=== PATIENT | female | born 1985 | race Caucasian/White ===

== ENCOUNTER 2021-01-15 10:07 | Emergency (ER) | payer MEDICAID ==
[2021-01-15] MEDS ORDERED: Lactated Ringers 1,000 ML IV ONE (10:48)
[2021-01-15] MEDS ORDERED: Ketorolac 15 MG/ML SDV IVPUSH ONE (10:50)
--- NOTE | 2021-01-15 11:40 | EDM.PDOC ---
ED HPI GENERAL MEDICAL PROBLEM - General Chief Complaint: Genitourinary Problem Stated Complaint: KIDNEY Time Seen by Provider: 01/15/21 10:29 - History of Present Illness INITIAL COMMENTS - FREE TEXT/NARRATIVE: CHIEF COMPLAINT(S): "My kidneys are hurting." HISTORY OF PRESENT ILLNESS: This is a 35-year-old woman in without any significant past medical history who comes to the emergency department with a chief complaint of "my kidneys are hurting. The patient states that starting approximately 5 hours prior to arrival she started to experience left-sided/left flank pain radiating to her groin which she describes as sharp rated 10 out of 10. She states that this pain is constant. She denies any vaginal bleeding, vaginal discharge, dysuria but states that she does have some increased urgency but she is not peeing a lot. She states that she has some nausea and feels bloated. She has not yet tried any pain medication. She has never had pain like this before. She states that she tried to drink water and cranberry juice without did not help. There are no exacerbating factors. No relieving factors. REVIEW OF SYSTEMS: Constitutional: Denies fever, chills. Eyes: Denies eye pain Ears, Nose, Mouth, & Throat: Denies earache Cardiovascular: Denies chest pain Respiratory: Denies shortness of breath Gastrointestinal: Denies abdominal pain, nausea, vomiting, diarrhea, hematochezia. Genitourinary: Positive for left flank pain, increased urgency, decreased urinary output. Denies dysuria, vaginal bleeding, vaginal discharge Skin:Denies a rash MSK: Denies joint pain Neurological: Denies blurred vision Psychiatric: Denies depression PAST MEDICAL HISTORY: As per history of present illness and as reviewed below otherwise noncontributory. SURGICAL HISTORY: As per history of present illness and as reviewed below otherwise noncontributory. LMP: December 12, 2020 SOCIAL HISTORY: As per history of present illness and as reviewed below otherwise noncontributory. FAMILY HISTORY: As per history of present illness and as reviewed below otherwise noncontributory. EXAMINATION OF ORGAN SYSTEMS/BODY AREAS: Constitutional: Blood pressure is 120/73, heart rate 64, respiratory rate 16 with an oxygen saturation 98% on room air. Temperature 36.1 General: Young woman who does not appear to be in acute distress. Psychiatric: Appropriate mood and affect. Eyes: No scleral icterus or conjunctival erythema ENMT: Moist mucous membranes. No pharyngeal erythema Cardiovascular: Regular, rate, and rhythm. No gallops, murmurs, or rubs. Bilateral upper extremity pulses symmetric and intact. No peripheral edema. No JVD. Respiratory: Lungs clear to auscultation bilaterally. No wheezes, rales, or rhonchi. Gastrointestinal: Soft, non-tender, non-distended. Normoactive bowel sounds Genitourinary: Positive for suprapubic tenderness and left flank tenderness. Musculoskeletal: Normal range of motion. Skin: No lesions or abrasions. Neurological: Alert, GCS 15 MEDICAL DECISION MAKING AND COURSE IN THE ED WITH INTERPRETATION/REVIEW OF DIAGNOSTIC STUDIES: This is a 35-year-old man without any significant past medical history who comes to the emergency department with acute onset left flank pain with radiation to the groin associated with increased urinary urgency and decreased urinary output. At this time differential includes pyelonephritis, cystitis, nephrolithiasis. Will obtain a CT abdomen pelvis without contrast for further evaluation. Will obtain CBC, BMP, hCG and urinalysis. We will provide the patient with Toradol for pain relief and 1 L of lactated Ringer's bolus. Laboratory: CBC is unremarkable. BMP unremarkable. Urinalysis is negative. The radiological images were viewed by myself along with reading the report from the radiologist. CT abdomen pelvis without contrast reveals no acute findings in the abdomen or pelvis. There is a few tiny nonobstructing right renal calyceal stones. No hydronephrosis or calculi. There is fullness of the uterine cervix and vaginal canal with multiple endovaginal gas locules of uncertain to significance. There is also a small hyperdensity in the left ovary. After imaging I did discuss results with the patient. At this time the patient stated that she had continued pain. Therefore I provided her with morphine for pain relief. I encouraged her that I would like to obtain a transvaginal ultrasound. She was amenable to this plan. The radiological images were viewed by myself along with reading the report from the radiologist. Transvaginal ultrasound does not reveal any acute pelvic pathology. There is mild enlargement of the uterus without any signs of mass. Otherwise no abnormality of the ovaries bilaterally. I did discuss the results with the patient. At this time the patient was feeling much better. Encouraged her to follow-up with her primary care physician for reevaluation. She was given strict return precautions and had no further questions. DISPOSITION: The patient was discharged home in stable condition. The patient will follow up with with her primary care physician in 3 to 5 days CONDITION: Fair PROCEDURES: None FINAL IMPRESSION(S)/DIAGNOSES: 1. Acute abdominal pain 2. Acute flank pain Tramaine Barragan M.D. Groin Pain Score (Numeric/FACES): 9 - Related Data Allergies Allergy/AdvReac Type Severity Reaction Status Date / Time No Known Allergies Allergy Verified 01/17/21 10:50 Home Meds: Home Meds Doxycycline [Vibramycin] 100 mg PO BID 14 Days #28 cap 01/17/21 [Rx] metroNIDAZOLE [Flagyl] 500 mg PO Q12H 14 Days #28 tab 01/17/21 [Rx] Past Medical History - Past Health History Medical/Surgical History: Denies Medical/Surgical History - Infectious Disease History Infectious Disease History: Reports: None Social & Family History - Tobacco Use Tobacco Use Status *Q: Never Tobacco User - Caffeine Use Caffeine Use: Reports: None - Recreational Drug Use Recreational Drug Use: No ED ROS GENERAL - Review of Systems Review Of Systems: See Below ED EXAM, GENERAL - Physical Exam Exam: See Below Course - Vital Signs Last Recorded V/S: Last Vital Signs Temp 36.1 C 01/15/21 10:28 Pulse 67 01/15/21 16:44 Resp 16 01/15/21 16:44 BP 119/78 01/15/21 16:44 Pulse Ox 97 01/15/21 16:44 - Orders/Labs/Meds Labs: Laboratory Tests 01/15/21 01/15/21 01/15/21 Range/Units 10:32 10:32 11:17 WBC 7.41 (4.0-11.0) K/uL RBC 4.29 L (4.30-5.90) M/uL Hgb 13.2 (12.0-16.0) g/dL Hct 39.7 (36.0-46.0) % MCV 92.5 (80.0-98.0) fL MCH 30.8 (27.0-32.0) pg MCHC 33.2 (31.0-37.0) g/dL RDW Std Deviation 44.5 (28.0-62.0) fl RDW Coeff of Adolfo 13 (11.0-15.0) % Plt Count 272 (150-400) K/uL MPV 10.10 (7.40-12.00) fL Neut % (Auto) 76.4 (48.0-80.0) % Lymph % (Auto) 15.7 L (16.0-40.0) % Swain % (Auto) 6.7 (0.0-15.0) % Eos % (Auto) 0.9 (0.0-7.0) % Baso % (Auto) 0.3 (0.0-1.5) % Neut # (Auto) 5.7 (1.4-5.7) K/uL Lymph # (Auto) 1.2 (0.6-2.4) K/uL Swain # (Auto) 0.5 (0.0-0.8) K/uL Eos # (Auto) 0.1 (0.0-0.7) K/uL Baso # (Auto) 0.0 (0.0-0.1) K/uL Nucleated RBC % 0.0 /100WBC Nucleated RBCs # 0 K/uL Sodium (136-145) mmol/L Potassium (3.5-5.1) mmol/L Chloride (98-107) mmol/L Carbon Dioxide (21.0-32.0) mmol/L BUN (7.0-18.0) mg/dL Creatinine (0.6-1.0) mg/dL Est Cr Clr Drug Dosing mL/min Estimated GFR (MDRD) ml/min Glucose (74-106) mg/dL Calcium (8.5-10.1) mg/dL Urine Color STRAW Urine Appearance CLEAR Urine pH 7.5 (5.0-8.0) Ur Specific [place] 1.010 (1.001-1.035) Urine Protein NEGATIVE (NEGATIVE) mg/dL Urine Glucose (UA) NEGATIVE (NEGATIVE) mg/dL Urine Ketones NEGATIVE (NEGATIVE) mg/dL Urine Occult Blood NEGATIVE (NEGATIVE) Urine Nitrite NEGATIVE (NEGATIVE) Urine Bilirubin NEGATIVE (NEGATIVE) Urine Urobilinogen 0.2 (<2.0) EU/dL Ur Leukocyte Esterase NEGATIVE (NEGATIVE) Urine HCG, Qual NEGATIVE (NEGATIVE) 01/15/21 Range/Units 11:17 WBC (4.0-11.0) K/uL RBC (4.30-5.90) M/uL Hgb (12.0-16.0) g/dL Hct (36.0-46.0) % MCV (80.0-98.0) fL MCH (27.0-32.0) pg MCHC (31.0-37.0) g/dL RDW Std Deviation (28.0-62.0) fl RDW Coeff of Adolfo (11.0-15.0) % Plt Count (150-400) K/uL MPV (7.40-12.00) fL Neut % (Auto) (48.0-80.0) % Lymph % (Auto) (16.0-40.0) % Swain % (Auto) (0.0-15.0) % Eos % (Auto) (0.0-7.0) % Baso % (Auto) (0.0-1.5) % Neut # (Auto) (1.4-5.7) K/uL Lymph # (Auto) (0.6-2.4) K/uL Swain # (Auto) (0.0-0.8) K/uL Eos # (Auto) (0.0-0.7) K/uL Baso # (Auto) (0.0-0.1) K/uL Nucleated RBC % /100WBC Nucleated RBCs # K/uL Sodium 139 (136-145) mmol/L Potassium 4.2 (3.5-5.1) mmol/L Chloride 103 (98-107) mmol/L Carbon Dioxide 29.0 (21.0-32.0) mmol/L BUN 5 L (7.0-18.0) mg/dL Creatinine 0.5 L (0.6-1.0) mg/dL Est Cr Clr Drug Dosing 138.19 mL/min Estimated GFR (MDRD) > 60.0 ml/min Glucose 89 (74-106) mg/dL Calcium 8.8 (8.5-10.1) mg/dL Urine Color Urine Appearance Urine pH (5.0-8.0) Ur Specific [place] (1.001-1.035) Urine Protein (NEGATIVE) mg/dL Urine Glucose (UA) (NEGATIVE) mg/dL Urine Ketones (NEGATIVE) mg/dL Urine Occult Blood (NEGATIVE) Urine Nitrite (NEGATIVE) Urine Bilirubin (NEGATIVE) Urine Urobilinogen (<2.0) EU/dL Ur Leukocyte Esterase (NEGATIVE) Urine HCG, Qual (NEGATIVE) Meds: Medications Discontinued Medications Generic Name Dose Route Start Last Admin Trade Name Juanita PRN Reason Stop Dose Admin Lactated Ringer's 1,000 mls @ 999 mls/hr 01/15/21 10:48 01/15/21 11:16 Ringers, Lactated IV 01/15/21 11:48 999 mls/hr .BOLUS ONE Administration Ketorolac Tromethamine 15 mg 01/15/21 10:50 01/15/21 11:16 Ketorolac 15 Mg/Ml Sdv IVPUSH 01/15/21 10:51 15 mg ONETIME ONE Administration Morphine Sulfate 4 mg 01/15/21 14:13 01/15/21 15:33 Morphine 4 Mg/Ml Syringe IVPUSH 01/15/21 14:14 4 mg ONETIME ONE Administration Departure - Departure Time of Disposition: 16:31 Disposition: Home, Self-Care 01 Condition: Fair Clinical Impression: Abdominal pain - Discharge Information *PRESCRIPTION DRUG MONITORING PROGRAM REVIEWED*: No *COPY OF PRESCRIPTION DRUG MONITORING REPORT IN PATIENT LEX: No Instructions: Abdominal Pain, Adult, [id number], Flank Pain, Adult, Eas y-to-Read Referrals: PCP,None [Primary Care Provider] - Forms: ED Department Discharge Additional Instructions: You were evaluated today on an emergent basis. At this time I would like you to take Tylenol and Motrin alternating for pain relief. Your work-up today was negative other than suggestion that you might be beginning your menstrual cycle. If you have any worsening pain, fever, continued pain when you AR like you to return to the emergency department. Otherwise please follow-up with your primary care physician in 3 to 5 days. Please use: Tylenol 500-1000mg every 6 hours (DO NOT TAKE MORE THAN 4000mg in 1 day) Ibuprofen 400mg every 6 hours (Take with food as it can cause ulcers, GI upset) Example schedule: 8:00 AM (Tylenol 500-1000mg) 11:00 AM (Ibuprofen 400mg) 2:00 PM (Tylenol 500-1000mg) 5:00 PM (Ibuprofen 400mg) [facility] [address] [place] [id number] [facility] [address] [place] [id number] The patient is informed of any results of their evaluation and diagnostic workup and all questions are answered. They are given discharge instructions and return precautions. The patient is stable for discharge. The patient states they understand and agree with the plan and that they will return if their symptoms get worse or if they have any new concerns. The following information is given to patients seen in the emergency department who are being discharged to home. This information is to outline your options for follow-up care. We provide all patients seen in our emergency department with a follow-up referral. The need for follow-up, as well as the timing and circumstances, are variable depending upon the specifics of your emergency department visit. If you don't have a primary care physician on staff, we will provide you with a referral. We always advise you to contact your personal physician following an emergency department visit to inform them of the circumstance of the visit and for follow-up with them and/or the need for any referrals to a consulting specialist. The emergency department will also refer you to a specialist when appropriate. This referral assures that you have the opportunity for follow-up care with a specialist. All of these measure are taken in an effort to provide you with optimal care, which includes your follow-up. Under all circumstances we always encourage you to contact your private physician who remains a resource for coordinating your care. When calling for follow-up care, please make the office aware that this follow-up is from your recent emergency room visit. If for any reason you are refused follow-up, please contact the [facility] Emergency Department at and asked to speak to the emergency department charge nurse. Sepsis Event Note (ED) - Evaluation Sepsis Screening Result: No Definite Risk
[2021-01-15 12:15] LABS: BLOOD UREA NITROGEN,BUN 5 mg/dL (7.0-18.0); CHLORIDE,CL 103 mmol/L (98-107); GLUCOSE RANDOM 89 mg/dL (74-106); POTASSIUM,K 4.2 mmol/L (3.5-5.1); SODIUM,NA 139 mmol/L (136-145)
--- NOTE | 2021-01-15 13:51 | CT ---
INDICATION: Left flank pain, evaluate for nephrolithiasis. TECHNIQUE: CT of the abdomen and pelvis without intravenous contrast. Coronal and sagittal reconstructions. COMPARISON: None. FINDINGS: The unenhanced liver, gallbladder, spleen, pancreas, and adrenal glands are normal in appearance. No biliary dilation. Two small low-attenuation lesions in the right kidney most likely represent cysts. Few tiny 1 mm nonobstructing right renal caliceal stones. Probable tiny parenchymal calcification in the lower pole right kidney. No left intrarenal calculi. No hydronephrosis or ureteral dilation. No obstructing urinary calculi identified. The unenhanced bladder is normal in appearance. Small calcific densities adjacent to the uterine cornua may be related to tubal ligation. There is fullness of the uterine cervix and vagina with multiple endovaginal gas locules of uncertain significance. Small hyperdensity in the left ovary (series 201, image 134). No abnormality in the right adnexa. No bowel dilation. Negative appendix. Trace free fluid in the pelvic cul-de-sac may be physiologic. No intraperitoneal free air. No lymphadenopathy. The bones are unremarkable. 3 mm noncalcified pulmonary nodule in the lateral left lower lobe (series 202, image 10). 2 mm noncalcified pulmonary nodule along the left major fissure (image 11). 2 mm noncalcified pulmonary nodule in the anterior lateral right lower lobe (image 3). These are most likely benign given patient`s age. The lung bases are otherwise clear. IMPRESSION: 1. No acute findings in the abdomen or pelvis on this noncontrast exam. 2. Few tiny nonobstructing right renal caliceal stones. No left intrarenal calculi. No ureteral calculi or hydronephrosis. 3. Fullness of the uterine cervix and vaginal canal with multiple endovaginal gas locules of uncertain significance. There is also a small hyperdensity in the left ovary. This could be further evaluated with pelvic ultrasound. Please note that all CT scans at this facility use dose modulation, iterative reconstruction, and/or weight-based dosing when appropriate to reduce radiation dose to as low as reasonably achievable. Dictated by Crys Baker MD @ 01/15/2021 1:49:[address] Crys Baker @ Jan 15 2021 1:49PM
[2021-01-15] MEDS ORDERED: Morphine 4 MG/ML Syringe IVPUSH ONE (14:13)
--- NOTE | 2021-01-15 16:03 | US ---
INDICATION: Left lower quadrant abdominal pain. History of tubal ligation. COMPARISON: CT of the abdomen and pelvis without contrast from earlier today. FINDINGS: Transvaginal ultrasound examination of the female pelvis was performed. The uterus is anteverted with no evidence of mass. The uterus is mildly enlarged, measuring 10.3 x 6.0 x 4.3 cm. The endometrial lining is mildly increased thickness at 13 mm. This may be related to the patient`s menstrual cycle. The ovaries are normal in appearance and size, the right measuring 3.2 x 1.9 x 2.9 cm and the left measuring 3.2 x 1.8 by 3.3 cm. There is normal color and pulse doppler flow in both ovaries. There is a tiny amount of free fluid in the cul-de-sac, probably physiologic. The appearance is consistent with that of today`s CT. IMPRESSION: Mild enlargement of the uterus without any sign of a mass. Mild thickening of the endometrial lining which is probably related to the patient`s menstrual cycle. Nothing seen to suggest ovarian torsion. Dictated by Osman Cornejo MD @ 01/15/2021 4:01:[address] Osman Cornejo @ Jan 15 2021 4:01PM
== END 2021-01-15 16:44 | disposition home or self-care (01) ==
LOC: MW.ED 10:07
DX: R10.9 Unspecified abdominal pain (principal)
CPT/HCPCS: 36415; 74176; 76830; 80048; 81003; 81025; 85025; 96374; 99284; J1885; J2270; J7120; 96375

== ENCOUNTER 2021-01-17 10:23 | Emergency (ER) | payer MEDICAID ==
--- NOTE | 2021-01-17 11:30 | EDM.PDOC ---
ED HPI GENERAL MEDICAL PROBLEM - General Chief Complaint: Genitourinary Problem Stated Complaint: KIDNEYS Time Seen by Provider: 01/17/21 10:31 Source of Information: Reports: Patient History Limitations: Reports: No Limitations - History of Present Illness INITIAL COMMENTS - FREE TEXT/NARRATIVE: HISTORY AND PHYSICAL: History of present illness: Patient is a 35-year-old female who presents emergency room today secondary to left sided pelvic pain, urinary frequency and "feels like razors in my abdomen when I try to urinate". Patient states that she was seen and evaluated in the emergency room a few days ago and states that they did not find any source of her issues. Patient states that she tried to have sexual intercourse with her partner yesterday and states that this was so painful and created the same "razor like "sensation in her abdomen as when she tries to urinate. Patient states that she is in a 5-year monogamous relationship and does not believe to have sexually transmitted infection. Patient states that she is plus to start her menstrual cycle any day now. Patient states she does have a history of tubal ligation. Patient denies any vaginal bleeding, change in discharge, or vaginal odor. Patient denies any other symptoms or concerns. Patient denies fever, chills, chest pain, shortness of breath, or cough. Denies headache, neck stiff ness, change in vision, syncope, or near syncope. Denies nausea, vomiting, diarrhea, constipation. Has not noted any blood in urine or stool. Patient has been eating and drinking appropriately. Review of systems: As per history of present illness and below otherwise all systems reviewed and negative. Past medical history: As per history of present illness and as reviewed below otherwise noncontributory. Surgical history: As per history of present illness and as reviewed below otherwise noncontributory. Social history: See social history for further information Family history: As per history of present illness and as reviewed below otherwise noncontributory. Physical exam: General: Patient is alert, oriented, and in no acute distress. Patient sitting comfortably on exam table. All stable and reviewed by me. HEENT: Atraumatic, normocephalic, pupils equal and reactive bilaterally, negative for conjunctival pallor or scleral icterus, mucous membranes moist, TMs normal bilaterally, throat clear, neck supple, nontender, trachea midline. No drooling or trismus noted. No meningeal signs. No hot potato voice noted. Lungs: Clear to auscultation, breath sounds equal bilaterally, chest nontender. Heart: S1S2, regular rate and rhythm without overt murmur Abdomen: Soft, nondistended, nontender. Negative for masses or hepatosplenomegaly. Negative for costovertebral tenderness. Pelvis: Stable nontender. Genitourinary: Small Business Consultant at bedside Bronwyn Shields RN. External genitalia grossly unremarkable. There is a moderate amount of white vaginal discharge in the vaginal vault. Positive cervical motion tenderness with positive chandelier sign with uterine tenderness on exam concerning for pelvic inflammatory disease. Rectal: Deferred. Skin: Intact, warm, dry. No lesions or rashes noted. Extremities: Atraumatic, negative for cords or calf pain. Neurovascular unremarkable. Neuro: Awake, alert, oriented. Cranial nerves II through XII unremarkable. Cerebellum unremarkable. Motor and sensory unremarkable throughout. Exam nonfocal. Notes: Patient is a 35-year-old female presents emergency room secondary to left-sided pelvic pain and discomfort with urination and intercourse. Upon arrival to the ED, patient is vitally stable and well-appearing on exam and does have some mild tenderness of the left lower pelvic region. On exam, patient does have positive cervical motion tenderness with chandelier sign and uterine tenderness on exam. Upon chart review, patient was seen in the emergency room on 01/15/2021 and at that time received a thorough work-up including abdominal pelvic CT scan which did show some stones in her right kidney without active ureterolithiasis, otherwise, recommend a pelvic ultrasound due to enlarged uterus. Transvaginal ultrasound at that time did show mild enlargement of the uterus without any sign of a mass. Mild thickening of the endometrial lining which likely related to patient's menstrual cycle. Nothing seen to suggest ovarian torsion. Lab work at that time was unremarkable with clear urinalysis. Will repeat labwork and repeat transvaginal ultrasound to rule out TOA. We will also obtain gonorrhea and chlamydia swab and affirm. CBC mild derangements are unremarkable. CMP mild derangements unremarkable. hCG is negative. Urinalysis is clear of infection. Affirm is positive for bacterial vaginosis. Pending gonorrhea and chlamydia swab. Transvaginal ultrasound shows demonstration of slightly increased fluid within the cul-de-sac, likely physiologic in nature. Otherwise, no acute abnormality of the pelvis. Upon reevaluation of patient, she remains vital stable and comfortable throughout stay in ED. Strict return precautions thoroughly discussed with patient. Discussed importance for follow-up with a women's health care greg bustamante. Voices understanding and is agreeable to plan of care. Denies any further questions or concerns at this time. Diagnostics: CBC, CMP, UA, Serum hcg, Lipase, G&C, Affirm [employer]rapeutics: Rocephin 500 mg IM Prescription: Doxycycline, Flagyl Impression: Pelvic inflammatory disease Bacterial vaginosis Plan: 1. You can alternate ibuprofen and Tylenol as directed for pain and discomfort. 2. Follow-up with a women's health care provider and primary care provider as discussed. Return to the ED as needed and as discussed. 3. Refrain from sexual intercourse until you all lab work has returned and your symptoms have resolved. Definitive disposition and diagnosis as appropriate pending reevaluation and review of above. Left Flank Pain Score (Numeric/FACES): 8 - Related Data Allergies Allergy/AdvReac Type Severity Reaction Status Date / Time No Known Allergies Allergy Verified 01/17/21 10:50 Home Meds: Home Meds Doxycycline [Vibramycin] 100 mg PO BID 14 Days #28 cap 01/17/21 [Rx] metroNIDAZOLE [Flagyl] 500 mg PO Q12H 14 Days #28 tab 01/17/21 [Rx] Past Medical History - Past Health History Medical/Surgical History: Denies Medical/Surgical History HEENT History: Reports: None Cardiovascular History: Reports: None Respiratory History: Reports: None Gastrointestinal History: Reports: None Genitourinary History: Reports: None Musculoskeletal History: Reports: None Neurological History: Reports: None Psychiatric History: Reports: None Endocrine/Metabolic History: Reports: None Hematologic History: Reports: None Immunologic History: Reports: None Oncologic (Cancer) History: Reports: None Dermatologic History: Reports: None - Infectious Disease History Infectious Disease History: Reports: None - Past Surgical History Head Surgeries/Procedures: Reports: None HEENT Surgical History: Reports: None Cardiovascular Surgical History: Reports: None Respiratory Surgical History: Reports: None GI Surgical History: Reports: None Female Surgical History: Reports: None Endocrine Surgical History: Reports: None Neurological Surgical History: Reports: None Musculoskeletal Surgical History: Reports: None Oncologic Surgical History: Reports: None Dermatological Surgical History: Reports: None Social & Family History - Family History Family Medical History: No Pertinent Family History - Tobacco Use Tobacco Use Status *Q: Never Tobacco User - Caffeine Use Caffeine Use: Reports: None - Recreational Drug Use Recreational Drug Use: No ED ROS GENERAL - Review of Systems Review Of Systems: Comprehensive ROS is negative, except as noted in HPI. ED EXAM, GENERAL - Physical Exam Exam: See Below (see dictation) Course - Vital Signs Last Recorded V/S: Last Vital Signs Temp 97.3 F 01/17/21 10:47 Pulse 57 L 01/17/21 13:02 Resp 18 01/17/21 13:02 BP 107/55 L 01/17/21 13:02 Pulse Ox 98 01/17/21 13:02 - Orders/Labs/Meds Orders: Active Orders 24 hr Category Date Time Status CHLAMYDIA AND GONORRHEA BY TMA Stat Lab 01/17/21 12:14 Received Labs: Laboratory Tests 01/17/21 01/17/21 01/17/21 Range/Units 10:54 11:29 11:29 WBC 9.11 (4.0-11.0) K/uL RBC 4.23 L (4.30-5.90) M/uL Hgb 13.2 (12.0-16.0) g/dL Hct 38.4 (36.0-46.0) % MCV 90.8 (80.0-98.0) fL MCH 31.2 (27.0-32.0) pg MCHC 34.4 (31.0-37.0) g/dL RDW Std Deviation 42.6 (28.0-62.0) fl RDW Coeff of Adolfo 13 (11.0-15.0) % Plt Count 276 (150-400) K/uL MPV 9.80 (7.40-12.00) fL Neut % (Auto) 76.5 (48.0-80.0) % Lymph % (Auto) 14.3 L (16.0-40.0) % Love % (Auto) 7.2 (0.0-15.0) % Eos % (Auto) 1.8 (0.0-7.0) % Baso % (Auto) 0.2 (0.0-1.5) % Neut # (Auto) 7.0 H (1.4-5.7) K/uL Lymph # (Auto) 1.3 (0.6-2.4) K/uL Love # (Auto) 0.7 (0.0-0.8) K/uL Eos # (Auto) 0.2 (0.0-0.7) K/uL Baso # (Auto) 0.0 (0.0-0.1) K/uL Nucleated RBC % 0.0 /100WBC Nucleated RBCs # 0 K/uL Sodium 138 (136-145) mmol/L Potassium 3.9 (3.5-5.1) mmol/L Chloride 102 (98-107) mmol/L Carbon Dioxide 28.0 (21.0-32.0) mmol/L BUN 9 (7.0-18.0) mg/dL Creatinine 0.6 (0.6-1.0) mg/dL Est Cr Clr Drug Dosing 115.16 mL/min Estimated GFR (MDRD) > 60.0 ml/min Glucose 86 (74-106) mg/dL Calcium 8.8 (8.5-10.1) mg/dL Total Bilirubin 0.3 (0.2-1.0) mg/dL AST 28 (15-37) IU/L ALT 70 H (14-63) IU/L Alkaline Phosphatase 94 (46-116) U/L Total Protein 7.2 (6.4-8.2) g/dL Albumin 3.9 (3.4-5.0) g/dL Globulin 3.3 (2.6-4.0) g/dL Albumin/Globulin Ratio 1.2 (0.9-1.6) Lipase 49 L (73-393) U/L HCG, Qual (NEG) Urine Color YELLOW Urine Appearance CLEAR Urine pH 6.0 (5.0-8.0) Ur Specific Candler 1.010 (1.001-1.035) Urine Protein NEGATIVE (NEGATIVE) mg/dL Urine Glucose (UA) NEGATIVE (NEGATIVE) mg/dL Urine Ketones NEGATIVE (NEGATIVE) mg/dL Urine Occult Blood NEGATIVE (NEGATIVE) Urine Nitrite NEGATIVE (NEGATIVE) Urine Bilirubin NEGATIVE (NEGATIVE) Urine Urobilinogen 0.2 (<2.0) EU/dL Ur Leukocyte Esterase NEGATIVE (NEGATIVE) Padmaja species DNA (NEGATIVE) Gardnerella DNA Probe (NEGATIVE) Trichomonas DNA Probe (NEGATIVE) 01/17/21 01/17/21 Range/Units 11:29 12:14 WBC (4.0-11.0) K/uL RBC (4.30-5.90) M/uL Hgb (12.0-16.0) g/dL Hct (36.0-46.0) % MCV (80.0-98.0) fL MCH (27.0-32.0) pg MCHC (31.0-37.0) g/dL RDW Std Deviation (28.0-62.0) fl RDW Coeff of Adolfo (11.0-15.0) % Plt Count (150-400) K/uL MPV (7.40-12.00) fL Neut % (Auto) (48.0-80.0) % Lymph % (Auto) (16.0-40.0) % Love % (Auto) (0.0-15.0) % Eos % (Auto) (0.0-7.0) % Baso % (Auto) (0.0-1.5) % Neut # (Auto) (1.4-5.7) K/uL Lymph # (Auto) (0.6-2.4) K/uL Love # (Auto) (0.0-0.8) K/uL Eos # (Auto) (0.0-0.7) K/uL Baso # (Auto) (0.0-0.1) K/uL Nucleated RBC % /100WBC Nucleated RBCs # K/uL Sodium (136-145) mmol/L Potassium (3.5-5.1) mmol/L Chloride (98-107) mmol/L Carbon Dioxide (21.0-32.0) mmol/L BUN (7.0-18.0) mg/dL Creatinine (0.6-1.0) mg/dL Est Cr Clr Drug Dosing mL/min Estimated GFR (MDRD) ml/min Glucose (74-106) mg/dL Calcium (8.5-10.1) mg/dL Total Bilirubin (0.2-1.0) mg/dL AST (15-37) IU/L ALT (14-63) IU/L Alkaline Phosphatase (46-116) U/L Total Protein (6.4-8.2) g/dL Albumin (3.4-5.0) g/dL Globulin (2.6-4.0) g/dL Albumin/Globulin Ratio (0.9-1.6) Lipase (73-393) U/L HCG, Qual NEGATIVE (NEG) Urine Color Urine Appearance Urine pH (5.0-8.0) Ur Specific Candler (1.001-1.035) Urine Protein (NEGATIVE) mg/dL Urine Glucose (UA) (NEGATIVE) mg/dL Urine Ketones (NEGATIVE) mg/dL Urine Occult Blood (NEGATIVE) Urine Nitrite (NEGATIVE) Urine Bilirubin (NEGATIVE) Urine Urobilinogen (<2.0) EU/dL Ur Leukocyte Esterase (NEGATIVE) Padmaja species DNA NEGATIVE (NEGATIVE) Gardnerella DNA Probe POSITIVE H (NEGATIVE) Trichomonas DNA Probe NEGATIVE (NEGATIVE) Meds: Medications Discontinued Medications Generic Name Dose Route Start Last Admin Trade Name Freq PRN Reason Stop Dose Admin Ceftriaxone Sodium 500 mg/ 2 mls @ 2 mls/sec 01/17/21 15:05 01/17/21 15:22 Lidocaine HCl IM 01/17/21 15:06 2 mls/sec ONETIME ONE Administration Departure - Departure Time of Disposition: 15:06 Disposition: Home, Self-Care 01 Clinical Impression: Pelvic inflammatory disease, Bacterial vaginosis - Discharge Information Prescriptions: metroNIDAZOLE [Flagyl] 500 mg PO Q12H 14 Days #28 tab Doxycycline [Vibramycin] 100 mg PO BID 14 Days #28 cap Referrals: PCP,None [Primary Care Provider] - Forms: ED Department Discharge Additional Instructions: The following information is given to patients seen in the emergency department who are being discharged to home. This information is to outline your options for follow-up care. We provide all patients seen in our emergency department with a follow-up referral. The need for follow-up, as well as the timing and circumstances, are variable depending upon the specifics of your emergency department visit. If you don't have a primary care physician on staff, we will provide you with a referral. We always advise you to contact your personal physician following an emergency department visit to inform them of the circumstance of the visit and for follow-up with them and/or the need for any referrals to a consulting s pecialist. The emergency department will also refer you to a specialist when appropriate. This referral assures that you have the opportunity for follow-up care with a specialist. All of these measure are taken in an effort to provide you with optimal care, which includes your follow-up. Under all circumstances we always encourage you to contact your private physician who remains a resource for coordinating your care. When calling for follow-up care, please make the office aware that this follow-up is from your recent emergency room visit. If for any reason you are refused follow-up, please contact the [facility] at and asked to speak to the emergency department charge nurse. [facility] [address] [place] [address] [facility] [address] [place] [address] [facility] [address] [place] [address] 1. You can alternate ibuprofen and Tylenol as directed for pain and discomfort. 2. Follow-up with a women's health care provider and primary care provider as discussed. Return to the ED as needed and as discussed. 3. Refrain from sexual intercourse until you all lab work has returned and your symptoms have resolved. Sepsis Event Note (ED) - Focused Exam Vital Signs: Vital Signs Temp Pulse Resp BP Pulse Ox 01/17/21 13:02 57 L 18 107/55 L 98 01/17/21 10:47 97.3 F 72 19 114/80 97 - My Orders Last 24 Hours: My Active Orders 01/17/21 12:14 CHLAMYDIA AND GONORRHEA BY TMA Stat - Assessment/Plan Last 24 Hours: My Active Orders 01/17/21 12:14 CHLAMYDIA AND GONORRHEA BY TMA Stat
[2021-01-17 12:02] LABS: BLOOD UREA NITROGEN,BUN 9 mg/dL (7.0-18.0); CHLORIDE,CL 102 mmol/L (98-107); GLUCOSE RANDOM 86 mg/dL (74-106); LIPASE 49 U/L (73-393); POTASSIUM,K 3.9 mmol/L (3.5-5.1); SODIUM,NA 138 mmol/L (136-145)
--- NOTE | 2021-01-17 15:04 | US ---
INDICATION: Increasing left lower quadrant pain TECHNIQUE: Ultrasound pelvis transabdominal and transvaginal for better assessment or to better visualize the endometrium. Real-time sonographic images with spectral and color Doppler imaging of the ovaries were obtained. COMPARISON: Early OB ultrasound January 15, 2021 FINDINGS: Uterus: 8.7 x 6.4 x 4.7 cm. Normal echotexture of the myometrium. No masses. Endometrium: Transvaginal imaging was performed to better evaluate the endometrium. Endometrial thickness measures 9 mm. No sign of endometrial mass or fluid. Right ovary measures 3.8 x 2.9 x 1.9 cm and left ovary measures 2.4 x 2.4 x 1.6 cm. No ovarian or adnexal masses. Normal arterial and venous blood flow is demonstrated in both ovaries. Cul-de-sac: Moderate free fluid. IMPRESSION: Demonstration of an slightly increasing fluid within the cul-de-sac, likely physiologic in nature. Otherwise, no other acute abnormality of the pelvis is appreciated. Dictated by John Overton MD @ 01/17/2021 3:03:[address] oJhn Overton @ Jan 17 2021 3:03PM
[2021-01-17] MEDS ORDERED: cefTRIAXone 500 MG in Lidocaine 1% 2 ML IM ONE (15:05)
[2021-01-18 12:06] LABS: C.TRACHOMATIS BY TMA Negative (Negative); N.GONORRHOEAE BY TMA Negative (Negative)
== END 2021-01-17 15:25 | disposition home or self-care (01) ==
LOC: MW.ED 10:23
DX: N76.0 Acute vaginitis (principal); N73.9 Female pelvic inflammatory disease, unspecified; B96.89 Other specified bacterial agents as the cause of diseases classified elsewhere
CPT/HCPCS: 36415; 76830; 80053; 81003; 83690; 84703; 85025; 87480; 87491; 87510; 87591; 87660; 96372; 99284; J0696